=== PATIENT | female | born 2000 | race Caucasian/White ===

== ENCOUNTER 2024-12-15 04:44 | Emergency (ER) | payer OTHER, SELFPAY ==
--- NOTE | ~2024-12-15 | XR_ITS ---
CLINICAL HISTORY: vomiting, ? aspiration 1 view chest x-ray Comparison: None Findings: No consolidation or effusion. Heart size is normal. No acute fracture. IMPRESSION: 1. No acute findings. This document has been electronically signed by: Tim López MD on 12/15/2024 07:03:21
[2024-12-15 04:50] VITALS: BP 115/75; PULSE 85; O2SAT 95
[2024-12-15 04:52] VITALS: BP 100/61; PULSE 71; RESP 12; O2SAT 96; BMI 37.4
--- NOTE | 2024-12-15 05:04 | PC.NURSE ---
Pt BIBA from [facility] for ETOH along with possible SSRI's Pt not responding to verbal or painful stimuli Pt breathing even and unlabored 96% on rm air Vitals stable Plan of care ongoing.
[2024-12-15 05:15] LABS: Basophils Percent Auto 0.6 % (0-2); Eosinophils Absolute Auto 0.1 X10*3/uL (0.0-0.4); Eosinophils Percent Auto 1.3 % (0-4); Hematocrit 43.6 % (37.0-47.0); Hemoglobin 14.2 g/dl (12.0-16.0); Imm Gran Abs Auto 0.02 X10*3/uL (0.00-0.03); Imm Gran Pct Auto 0.3 % (0.0-0.4); Lymphocytes Absolute Auto 2.1 X10*3/uL (1.2-4.9); Lymphocytes Percent Auto 30.6 % (20-40); MANUAL DIFF FLAG NO; Mean Corpuscular HGB Conc 32.6 g/dl (31.0-35.0); Mean Corpuscular Hemoglobin 28.4 pg (27.0-33.0); Mean Corpuscular Volume 87.2 fL (80.0-98.0); Mean Platelet Volume 9.7 fL (9.4-12.3); Monocytes Absolute Auto 0.2 X10*3/uL (0.1-1.2); Neutrophils Absolute Auto 4.4 x10*3/uL (2.0-8.3); Neutrophils Percent Auto 64.2 % (45-73); Platelet Count 294 X10*3/uL (160-400); Red Cell Distribution Width 12.9 % (11.0-16.0); White Blood Count 6.9 X10*3/uL (4.8-10.8)
[2024-12-15 05:52] LABS: Alanine Aminotransferase 21 U/L (0-31); Albumin Level 4.1 g/dL (3.5-5.0); Alkaline Phosphatase 86 U/L (39-117); Anion Gap 19 (12-20); Aspartate Amino Transferase 49 U/L (5-31); Bilirubin Total 0.2 mg/dL (0.0-1.0); Blood Urea Nitrogen 8 mg/dL (9-16); Calcium 8.6 mg/dL (8.4-10.2); Carbon Dioxide 16 mmol/L (22-29); Chloride 108 mmol/L (96-108); Creatinine Clr Calc Pharmacy 164.3; Estimated Glomerular Filt Rate > 60; Ethanol 248 mg/dL; Glucose Random 103 mg/dL (60-115); Potassium 5.3 mmol/L (3.3-5.1); Sodium 138 mmol/L (135-145); Total Protein 7.8 g/dL (6.5-8.0)
[2024-12-15] MEDS: 0.9 % Sodium Chloride 1,000 ML 999 ML IV ×2 (07:52→09:00)
[2024-12-15 08:00] VITALS: BP 92/58; PULSE 85; RESP 13; TEMP 36.7; O2SAT 100
[2024-12-15 08:19] LABS: Amphetamine Screen Urine Not Detected (Not Detect); Barbiturates, Urine Not Detected (Not Detect); Benzodiazepines Screen Urine Not Detected (Not Detect); Buprenorphine Scr Not Detected (Not Detect); Cannabinoid Screen Urine Not Detected (Not Detect); Cocaine Screen Urine Not Detected (Not Detect); Fentanyl, urine Not Detected (Not Detect); Methadone Screen, Urine Not Detected (Not Detect); Opiate Screen Urine Not Detected (Not Detect); Oxycodone Screen Urine Not Detected (Not Detect); Phencyclidine Screen Urine Not Detected (Not Detect)
--- NOTE | 2024-12-15 08:20 | ED.ALCOHOL ---
HPI - Alcohol General Chief Complaint: ETOH/Substance Use Stated Complaint: ETOH/NAUSEA/VOMITTING Time Seen by Provider: 12/15/24 08:13 Source: patient and EMS Mode of arrival: EMS Limitations: no limitations History of Present Illness ED Provider: HPI narrative: Otherwise healthy 24-year-old woman takes small dose of sertraline, denies any other drug use states went to a alliance party and drank too much alcohol her friends called the ambulance because she was unresponsive. Under time of my evaluation patient is tearful and significantly anxious still tachycardic slightly hypotensive. Denies SI or HI, denies use any other drugs, not a regular drinker. States this is her 1st time in the hospital. MD complaint: alcohol intoxication Related Data Allergies Allergy/AdvReac Type Severity Reaction Status Date / Time Unable to Assess Allergy Verified 12/15/24 05:02 Review of Systems Constitutional: Constitutional: Reports as per [facility] Social History Social History Do you have a plan to hurt others: No Plan Patient : No Physical Exam ED Vital Signs: Vital Signs - 24 hr 12/15/24 04:52 12/15/24 08:00 12/15/24 09:11 Temperature 98.1 F Pulse Rate 71 85 88 Respiratory Rate 12 13 16 Blood Pressure 100/61 92/58 L 104/56 L Pulse Oximetry 96 100 99 Oxygen Delivery Method Room Air Room Air Room Air 12/15/24 09:44 Temperature Pulse Rate 85 Respiratory Rate 13 Blood Pressure 106/70 Pulse Oximetry 99 Oxygen Delivery Method Room Air BMI result Body Mass Index 37.4 Const Other: Gen: ?No trauma to the face or head, anxious affect HEENT: PERRLA, dry oral mucosa Neck: Supple, no LAD CV: RRR, no obvious murmurs appreciated Resp: ?No wheezing rales rhonchi no stridor moving air well Abd: ?Bowel sounds are present, no tenderness no rebound no rigidity MSK: FROM, strength 5/5 all extremities Skin: Warm, dry, intact, Neuro: ?Alert and oriented x3, moving upper and lower extremities symmetrically, no obvious facial asymmetry noted Medical Decision Making Medical Decision Making [facility] Narrative: Patient is presenting with alcohol intoxication, still has alcohol on breath, ETOH level of 248 at 05:20, very anxious, tearful, we will give fluids, antiemetics, benzos, she will be sleeping off the EtOH affect NAD if we will continue to monitor, there is no trauma on exam, no concerns for assault etc. did not feel further imaging such as CT is indicated, no SI or HI. 10:20 ambulated, feels better, heart rate has decreased Differential Diagnosis Differential Diagnoses: The differential diagnosis associated with the presentation includes Alcohol intoxication, substance use disorder, dehydration, electrolyte derangements, Admission/Observation Consideration of admission/observation: Escalation of care including admission/observation considered Lab Data 12/15/24 05:11 12/15/24 05:21 Labs: Lab Results 12/15/24 12/15/24 12/15/24 Range/Units 05:11 05:21 07:58 WBC 6.9 (4.8-10.8) X10*3/uL RBC 5.00 (4.20-5.50) X10*6/uL Hgb 14.2 (12.0-16.0) g/dl Hct 43.6 (37.0-47.0) % MCV 87.2 (80.0-98.0) fL MCH 28.4 (27.0-33.0) pg MCHC 32.6 (31.0-35.0) g/dl RDW 12.9 (11.0-16.0) % Plt Count 294 (160-400) X10*3/uL MPV 9.7 (9.4-12.3) fL Immature Gran % (Auto) 0.3 (0.0-0.4) % Neut % (Auto) 64.2 (45-73) % Lymph % (Auto) 30.6 (20-40) % [place] % (Auto) 3.0 (2-11) % Eos % (Auto) 1.3 (0-4) % Baso % (Auto) 0.6 (0-2) % Lymph # (Auto) 2.1 (1.2-4.9) X10*3/uL [place] # (Auto) 0.2 (0.1-1.2) X10*3/uL Eos # (Auto) 0.1 (0.0-0.4) X10*3/uL Baso # (Auto) 0.0 (0.0-0.2) X10*3/uL Abs Immat Gran (auto) 0.02 (0.00-0.03) X10*3/uL Absolute Neuts (auto) 4.4 (2.0-8.3) x10*3/uL Absolute Nucleated RBC 0.000 (0.0-0.012) X10*3/uL Nucleated RBC % (auto) 0.0 (0.0-0.2) /100WBC Sodium 138 (135-145) mmol/L Potassium 5.3 H (3.3-5.1) mmol/L Chloride 108 (96-108) mmol/L Carbon Dioxide 16 L (22-29) mmol/L Anion Gap 19 (12-20) BUN 8 L (9-16) mg/dL Creatinine 0.63 (0.5-1.4) mg/dL Estim Creat Clear Calc 164.3 Estimated GFR > 60 Random Glucose 103 (60-115) mg/dL Calcium 8.6 (8.4-10.2) mg/dL Total Bilirubin 0.2 (0.0-1.0) mg/dL AST 49 H (5-31) U/L ALT 21 (0-31) U/L Alkaline Phosphatase 86 (39-117) U/L Total Protein 7.8 (6.5-8.0) g/dL Albumin 4.1 (3.5-5.0) g/dL Urine Opiates Screen Not Detected (Not Detect) Ur Buprenorphine Scrn Not Detected (Not Detect) ng/mL Ur Oxycodone Screen Not Detected (Not Detect) ng/mL Urine Methadone Screen Not Detected (Not Detect) ng/mL Urine Fentanyl Screen Not Detected (Not Detect) Ur Barbiturates Screen Not Detected (Not Detect) Ur Phencyclidine Scrn Not Detected (Not Detect) Ur Amphetamines Screen Not Detected (Not Detect) U Benzodiazepines Scrn Not Detected (Not Detect) Urine Cocaine Screen Not Detected (Not Detect) U Marijuana (THC) Screen Not Detected (Not Detect) Ethyl Alcohol 248 mg/dL Medications Administered Discontinued Medications Generic Name Dose Route Start Last Admin Trade Name Freq PRN Reason Stop Dose Admin Al Hydroxide/Mg Hydroxide 30 ml 12/15/24 08:19 12/15/24 08:59 Magnesium Hydrox/Alum Hydrox 30 Ml Oral.Susp PO 12/15/24 08:20 30 ml ONCE ONE Administration Diazepam 2.5 mg 12/15/24 08:19 12/15/24 08:59 Diazepam 10 Mg/2 Ml Cartridge IVPUSH 12/15/24 08:20 2.5 mg STAT STA Administration Famotidine 20 mg 12/15/24 08:19 12/15/24 08:59 Famotidine/Pf 20 Mg/2 Ml Vial IVPUSH 12/15/24 08:20 20 mg ONCE ONE Administration Sodium Chloride 1,000 mls @ 999 mls/hr 12/15/24 07:45 12/15/24 09:00 Ns IV 12/15/24 08:45 Infused .Q1H1M ALANA Infusion Sodium Chloride 1,000 mls @ 999 mls/hr 12/15/24 08:30 12/15/24 09:00 Ns IV 12/15/24 09:30 999 mls/hr .Q1H1M ALANA Administration Ondansetron HCl 4 mg 12/15/24 08:19 12/15/24 08:59 Ondansetron Hcl 4 Mg/2 Ml Vial IVPUSH 12/15/24 08:20 4 mg ONCE ONE Administration Discharge Plan Discharge Clinical Impression: Alcoholic intoxication Qualifiers: Complication of substance-induced condition: with unspecified complication Qualified Code(s): F10.929 - Alcohol use, unspecified with intoxication, unspecified Patient Disposition: Home, Self-Care Additional Instructions: Stay well hydrated for the next few days with water and Gatorade, avoid eating anything too spicy to fatty, soaps, broth, rice, potatoes, so as you do not irritate your stomach, you received fluids, medications for stomach discomfort, something to come you down a little bit, the rest of workup has been reassuring any other issues concerns come back to the ER
[2024-12-15] MEDS: Famotidine/PF 20 MG/2 ML VIAL IVPUSH (08:59)
[2024-12-15] MEDS: diazePAM 10 MG/2 ML CARTRIDGE 2.5 MG IVPUSH (08:59)
[2024-12-15] MEDS: Magnesium Hydrox/Alum Hydrox 30 ML ORAL.SUSP PO (08:59)
[2024-12-15] MEDS: ondansetron HCL 4 MG/2 ML VIAL IVPUSH (08:59)
[2024-12-15 09:11] VITALS: BP 104/56; PULSE 88; RESP 16; O2SAT 99
--- NOTE | 2024-12-15 09:12 | PC.NURSE ---
Pt ambulated with 1 assist for safety; tolerated well; HR 122 on return to room; IVF's and meds gv per orders; HR 88 at this time; pt asleep
[2024-12-15 09:44] VITALS: BP 106/70; PULSE 85; RESP 13; O2SAT 99
--- NOTE | 2024-12-15 10:32 | PC.NURSE ---
Pt's HR improved (88 bpm); pt ambulating independently
[2024-12-15 10:54] VITALS: BP 106/70; PULSE 85; RESP 13; TEMP 36.3; O2SAT 99
== END 2024-12-15 10:56 | disposition home or self-care (01) ==
PROVIDERS: Emergency Provider Emergency Medicine
DX: F10.929 Alcohol use, unspecified with intoxication, unspecified (principal); R11.2 Nausea with vomiting, unspecified; R00.0 Tachycardia, unspecified; F41.9 Anxiety disorder, unspecified; Z51.81 Encounter for therapeutic drug level monitoring
CPT/HCPCS: 36415; 71045; 80053; 80307; 85025; 96361; 96374; 96375; 99284; J1308; J2405; J3360

== ENCOUNTER → 2024-12-15 05:25 | Outpatient (BNV) | payer OTHER, SELFPAY | PROVIDERS: Visit Provider Radiology Diagnostic Radiology | DX: R11.10 Vomiting, unspecified (principal) | CPT/HCPCS: 71045 ==